=== PATIENT | male | born 1975 | race Caucasian/White ===

== ENCOUNTER 2022-02-27 09:39 | Outpatient (CLI) | payer OTHER ==
[2022-02-27 10:28] VITALS: BP 100/62
--- NOTE | 2022-02-27 10:28 | SLEEP CARE CONSULTATION ---
Information from patient questionnaire entered by Carla Albright. I have reviewed and concur with the information entered by Carla Albright. This document represents the service I personally performed and the decisions made by me, Loree Ortiz ARNP. History of Present Illness Service Date and Time: 02/27/2022 0939 Reason for Visit: New patient Chief Complaint: reports: Unrefreshed sleep, Snoring, Excessive daytime sleepiness, Observed pauses in breathing, Fatigue Date of Onset: 3+YRS Usual bedtime: 1999 Time it takes to fall asleep: 30-40MIN with mirtazepine; other days takes hours to fall asleep Snores at night: Yes Observed to quit breathing while asleep: Yes Sleeps alone due to snoring: No Number of times waking at night: 2-3 Reasons for waking at night: reports: Gasping for air, Bathroom. denies: Choking, Snoring Toss, Turn, or Twitch while sleeping: Yes Recalls having dreams: No (hasn't remembered since a child) Usually gets out of bed at: 0530; weekends [id number] Feels refreshed in the morning: No Morning headache: Yes (daily, RESOLVES AFTER A COUPLE HRS) Sleepy or fatigued during the day: Yes Ever fallen asleep while driving: Yes (drowsy driving/nodding; no accidents) Takes day naps: No Prior sleep studies: Yes (10 YRS AGO DONT REMEMBER WHERE) Additional HPI information: I had the pleasure of seeing GLADYS FLORENCE today regarding the possibility of him having a sleep disorder. His current complaints are excessive daytime sleepiness, fatigue, observed pauses in breathing, snoring and unrefreshed sleep. He states his has told him that he stops breathing in his sleep. He has woke himself up gasping when sleeping on his back. He has had cluster headaches that seem to get worse with lack of sleep. He went through a time of not getting more than 2-2.5 hours of sleep for about 5 months, he went to [facility] for in patient treatment and placed on mirtazapine. He was changed to a day schedule and new job as well which has improved his sleep time to 7-7.5 hours now. He states he is taking mirtazapine to help him sleep. He tells me that since he started using the medication he will wake up a few times a night really "animated" and go to bathroom according to his - he does not remember these wake ups. His describes his latest episode as snorting and sitting on side of bed, stomping to bathroom, slamming light on, slamming door of bathroom, using toilet and then slamming lid down, flinging door open and coming to bed by jumping in on all fours and laying down. He had a previous sleep study about 10 years ago and did not have sleep disordered breathing. He states his sleep and snoring has worsened over the last 10 years. He has also gained some weight since starting the mirtazapine. 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 Patient is and lives in [place]. Have you smoked in the past 12 months: Yes (quit 3 days ago) Cigarettes per day (20/pack): 10 Years of smokin Quit date: 02/25/22 Smoking Pack Years: 1.5 Alcohol use: Yes Alcohol amount and frequency: 1-2 DRINKS A MONTH Caffeine use: Yes Caffeine amount and frequency: 1-2 PER DAY Family History Family history of sleep disordered breathing: No (UNKNOWN ) Allergies and Home Medications Known drug allergies: Yes (Penicillin) Drug allergies reviewed: Yes Home medication list reviewed: Yes Allergy and home medication list: Medications: mirtazapine Omeprazole Review of Systems Weight gain over past 5 years: 15, in last 2 months from taking mirtazapine Cardiovascular: denies: high blood pressure Gastrointestinal: reports: heartburn Neurological: reports: headaches. denies: head trauma Psychiatric: reports: anxiety, depression Ear/Nose/Throat: reports: tonsillectomy, wisdom teeth removed Endocrine: denies: thyroid disease Immunologic: denies: allergies to food or environment Physical Exam Vital signs obtained and entered by: CARLA Norwood MA Blood Pressure: 100/62 (LEFT ARM) Cuff size: regular Heart Rate: 58 O2 Saturation: 98 Height: 6 ft 2 in Weight: 215 lb 6.4 oz Body Mass Index: 27.6 BMI Classification: Overweight Neck circumference: 16 Mouth and throat: narrow oropharynx Soft palate: long Hard palate: normal Uvula: normal Uvula visualization: 25% Mallampati Class III Tongue: enlarged in size with teeth pickett on lateral edges Tonsils: absent bilaterally Neck: normal w/o lymphadenopathy or thyromegaly Heart: regular rate and rhythm Lungs: clear bilaterally Impression and Plan 1. Suspected Obstructive Sleep Apnea-Hypopnea Syndrome, as suggested by a history of loud and irregular snoring, observed cessation of breath while asleep, gasping or choking in sleep, morning headache, frequent awakening during the night, unrefreshed sleep, cognitive impairment, and excessive daytime sleepiness. Narrow oropharynx and obesity are common predisposing factors for obstructive sleep apnea-hypopnea syndrome. I recommend proceeding to polysomnography to confirm the diagnosis and to assess severity. If the patient has significant sleep disordered breathing, a manual CPAP titration study will also be performed to find the optimal treatment pressure. I informed the patient of what the sleep studies involve and after some discussion, obtained agreement to proceed. The pathophysiology of obstructive sleep apnea-hypopnea syndrome was discussed with the patient and health risks of cardiovascular and cerebrovascular disease if not treated. Risks of drowsy driving discussed in detail and patient advised to avoid long distance driving and to pan puller at the first sign of drowsiness. Patient agreed to plan. * Schedule polysomnography * Avoid long distance driving or driving when feeling sleepy. * Avoid alcohol, sedative and muscle relaxant around bedtime. * Attempt to lose weight. * Review instructions provided by trained office staff on how to prepare for the sleep study. * Return for follow-up after sleep study completed. Counseling Topics: Weight loss health impact Visit Type: In Office Time Spent with Patient (minutes): 32 Provider Statement: I spent 100% of the Face to Face Visit with the patient with greater than 50% spent counseling the patient and coordination of care.
== END 2022-02-27 09:40 | disposition home or self-care (01) ==
LOC: SC 09:39
PROVIDERS: ATTEND Nurse Practitioner Family
DX: R06.83 Snoring (principal); G47.8 Other sleep disorders; R06.81 Apnea, not elsewhere classified; R51.9 Headache, unspecified; G47.10 Hypersomnia, unspecified; R53.83 Other fatigue; F32.A Depression, unspecified; Z87.891 Personal history of nicotine dependence; E66.3 Overweight; Z68.27 Body mass index [BMI] 27.0-27.9, adult
CPT/HCPCS: 99203; 99212

== ENCOUNTER 2022-03-21 19:06 | Outpatient (CLI) | payer OTHER | END 2022-03-21 19:07 | disposition home or self-care (01) | LOC: SC 19:06 | PROVIDERS: ATTEND Nurse Practitioner Family | DX: R06.83 Snoring (principal); R51.9 Headache, unspecified; R53.83 Other fatigue; G47.8 Other sleep disorders; R06.81 Apnea, not elsewhere classified; F32.A Depression, unspecified; G47.10 Hypersomnia, unspecified | CPT/HCPCS: 95810 ==

== ENCOUNTER 2022-03-27 13:11 | Outpatient (CLI) | payer OTHER ==
--- NOTE | 2022-03-27 11:36 | SLEEP CARE CONSULTATION ---
Information from patient questionnaire entered by Tiffani Albright. I have reviewed and concur with the information entered by Tiffani Albright. This document represents the service I personally performed and the decisions made by , Loree Ortiz ARNP. History of Present Illness Service Date and Time: 03/27/2022 1100 Initial Maurice Sleepiness Scale score: 17 (02/27/22) Current Maurice Sleepiness Scale score: 12 (03/27/22) Additional HPI information: GLADYS FLORENCE returns via video telehealth visit for follow up and results of the recently performed polysomnography. The patient was informed of the following findings: No significant sleep disordered breathing with an average AHI of 3.6 and paulette oxygen saturation of 88%. I explained the pathophysiology behind obstructive sleep apnea. Patient does not have sleep apnea and was advised how weight gain could increase the risk of developing sleep apnea in the future. I strongly encouraged the patient to lose weight. Patient has light snoring. Snoring can be reduced by weight loss. Weight loss is best achieved with diet consult. Patient instructed to contact PCP for referral. Snoring can also be treated with an oral appliance from a dentist. Advised to check insurance coverage. In addition, an ENT evaluation can be do to see if other treatment is indicated. Patient counseled not drink alcohol less than 4 hours before bedtime as it can increase snoring and apnea. Patient was cautioned about risks of drowsy driving until sleepiness symptoms resolve. Sleep Study - Results Type of Sleep Study: Polysomnography (COMPLETED 03/21/22) Prior sleep studies: Yes (10 YRS AGO DONT REMEMBER WHERE) Polysomnography/Home Sleep Study results: IMPRESSION: The quality of the study is good. The patient had normal sleep efficiency. The sleep architecture was abnormal for sleep fragmentation and reduced amount of time spent in slow wave sleep (N3). Respiratory monitoring showed no significant sleep disordered breathing (AHI = 1.8) or hypoxia (paulette oxygen saturation of 90%). The patient slept adequately in supine position (supine AHI = 2.6; non- supine = 0.87). Snore was light in intensity. There was no significant periodic leg movement of sleep. Cardiac rhythm was normal sinus rhythm without significant arrhythmia. No abnormal behavior (parasomnia) observed during the night. Allergies and Home Medications Drug allergies reviewed: Yes (pcn) Home medication list reviewed: Yes (no changes) Review of Systems Review of systems same as previous: Yes (no changes) Physical Exam Vital signs obtained and entered by: VIA PHONE TIFFANI Norwood MA Height: 6 ft 2 in (PER PT) Weight: 213 lb (PER PT) Body Mass Index: 27.3 BMI Classification: Overweight Impression and Plan Snoring but no significant sleep disordered breathing. Patient advised that often weight loss will reduce snoring as well as apnea risk. An oral appliance can also be used for snoring. This would require a dental consultation. Patient cautioned not to use other online appliances as can cause bite issues. A list of accredited dentists in [facility] and one local dentist who makes oral appliances is available in the office. Patient is advised to check if insurance will cover. An ENT consult can also be helpful to determine if any other treatment is an option. * Attempt to lose weight * Avoid alcohol consumption near bedtime * The patient is cautioned about driving until sleepiness is completely resolved. * Return as needed for follow up. Counseling Topics: Weight loss health impact Visit Type: Telehealth Video Video Type: Doximity Patient Location: Work Location of Provider: Office Patient agrees and consents to this telehealth visit type: Yes Patient agrees to have their insurance billed: Yes Time Spent with Patient (minutes): 20 Provider Statement: I spent 100% of the Telehealth Video Call with the patient with greater than 50% spent counseling the patient and coordination of care.
== END 2022-03-27 13:12 | disposition home or self-care (01) ==
LOC: SC 13:11
PROVIDERS: ATTEND Nurse Practitioner Family
DX: R06.83 Snoring (principal)

== ENCOUNTER 2023-10-09 21:20 | Emergency (ER) | payer OTHER ==
[2023-10-09 21:34] VITALS: BP 123/74; O2SAT 99
[2023-10-09] MEDS ORDERED: BACITRACIN ZINC OINT 1 PACKET TOP STA (21:56)
--- NOTE | 2023-10-09 21:58 | ED Physician Documentation ---
History of Present Illness - Stated complaint Stated Complaint: DOG BITE - Chief complaint Chief Complaint: Laceration - Additonal information Additional information: 28-year-old male with no pertinent past medical history presents emergency department for dog bite to chin. Patient says that his dog is currently injured he went to go check his pot and the dog lunged at the patient. There is a superficial laceration just below his chin bleeding is well-controlled he is up-to-date with his tetanus shot and his dog is also up-to-date with all his shots and is not acting rabid. PD PAST MEDICAL HISTORY - Past Medical History Past Medical History: No Cardiovascular: None Respiratory: None Neuro: None Endocrine/Autoimmune: None GI: None : None HEENT: None Psych: None Musculoskeletal: None Derm: None - Past Surgical History Past Surgical History: No - Present Medications Home Medications: Ambulatory Orders Medication Instructions Recorded Confirmed Mirtazapine [Remeron] See Rx Instructions .ROUTE .COMPLEX 02/27/22 03/27/22 Amox/Clav 875/125 [Augmentin 1 tablet PO Q12H 7 Days #14 tablet 10/09/23 875/125 Tab] - Allergies Allergies/Adverse Reactions: Allergies Allergy/AdvReac Type Severity Reaction Status Date / Time Penicillins Allergy Unknown Verified 10/09/23 21:30 - Social History Does the pt smoke?: No Smoking Status: Never smoker Does the pt drink ETOH?: No Does the pt have substance abuse?: No - Immunizations Immunizations are current?: Yes - POLST Patient has POLST: No PD ED PE NORMAL - Vitals Vital signs reviewed: Yes - General General: Alert and oriented X 3, No acute distress, Well developed/nourished - HEENT HEENT: PERRL, Pharynx benign, Other (Superficial laceration just below chin about 2 cm.) - Neck Neck: No bony TTP Results - Vitals Vitals: Vital Signs - 24 hr 10/09/23 21:22 Temperature 36.3 C L Heart Rate 68 Respiratory 15 Rate Blood Pressure 123/74 O2 Saturation 99 Oxygen O2 Source Room air PD Medical Decision Making - ED course ED course: 48-year-old male presents emergency department for dog bite to chin. There is a superficial laceration that is about 2 cm in length it appears to be well-approx imated there is no exposure of fatty tissue. It was irrigated thoroughly with normal saline here in the emergency department a prescription of Augmentin was sent with the patient for antibiotics and patient was given bacitracin ointment to apply over the laceration with a Band-Aid. He was taught how to manage the wound at home it was not closed given the fact that it was a dog bite injury he was taught signs and symptoms of infection to watch out for and when/if To report back to the emergency department. all questions answered patient safe for discharge at this time. Departure - Departure Disposition: Home, Self Care Clinical Impression: Dog bite Instructions: ED Bite Dog, ED Wound Care Prescriptions: Amox/Clav 875/125 [Augmentin 875/125 Tab] 1 tablet PO Q12H 7 Days #14 tablet Comments: Thank you for trusting us with your care. We have irrigated your wound on your chin thoroughly with normal saline and applied bacitracin over the wound. As we discussed facial wounds are very rare to get infected and he believes that it would be okay to hold off on taking the Augmentin unless he started noticing symptoms of infection in that case bring your prescription to the nearest pharmacy to have filled and start taking immediately. Wash your wound with soap and water keep a clean layer of bacitracin and Band-Aid over the wound and change it twice a day. Please help with your primary care provider about [facility] ER visit. Signs symptoms of infection to watch out for include redness, swelling, drainage that is yellow or green, fevers or chills. Forms: PCP List
== END 2023-10-09 22:13 | disposition home or self-care (01) ==
LOC: ED 21:20
DX: S01.81XA Laceration without foreign body of other part of head, initial encounter (principal); W54.0XXA Bitten by dog, initial encounter; Y93.K9 Activity, other involving animal care
CPT/HCPCS: 99282; 99283; A9270